=== PATIENT | male | born 1975 | race Caucasian/White ===

== ENCOUNTER 2023-07-13 15:18 | Emergency (ER) | payer SELFPAY ==
[2023-07-13 15:24] VITALS: BP 126/81; PULSE 82; RESP 18; TEMP 36.9; O2SAT 99; BMI 31.2
--- NOTE | 2023-07-13 15:34 | ED_ITS ---
HPI - Nausea/Vomiting/Diarrhea General Chief complaint: Abdominal Pain Stated complaint: Abdominal Pain, Nausea/Vomiting Time Seen by Provider: 07/13/23 15:20 Source: patient Mode of arrival: Wheelchair Limitations: no limitations History of Present Illness HPI Narrative: 47-year-old male presents for nausea and vomiting and abdominal pain. He developed some pain about 3:00 AM, about twelve hours ago. He started vomiting about six hours ago. No hematemesis and no diarrhea. His has diarrhea. His symptoms are continuous. Related Data Previous Rx's Medication Instructions Recorded ondansetron 4 mg disintegrating 4 mg PO Q6H PRN nausea and 07/13/23 tablet vomiting #20 tabs Allergies Allergy/AdvReac Type Severity Reaction Status Date / Time No Known Drug Allergies Allergy Verified 07/13/23 15:24 Review of Systems ROS Narrative A ten point review of systems is negative except as noted above. PFSH PFSH Social History Smoking status: Never smoker Exam Narrative Exam Narrative: Nurses note and vital signs reviewed and patient is not hypoxic. General: The patient appears well and in no apparent distress. Patient is resting comfortably on cart. Skin: Warm, dry, no pallor noted. There is no rash noted. Head: Normocephalic, atraumatic Eye: Normal conjunctiva, no drainage Ears, Nose, Mouth, and Throat: oral mucosa is moist. Nares patent. Cardiovascular: Regular Rate and Rhythm Respiratory: Patient is in no distress, no accessory muscle use, lungs are clear to auscultation, no wheezing, rales or rhonchi Back: non-tender, no CVA tenderness bilaterally to percussion. GI: obese, soft, mild mid abdominal tenderness Musculoskeletal: The patient has no evidence of calf tenderness, no pitting edema, symmetrical pulses noted bilaterally Neurological: A&O, normal speech Psychiatric: Cooperative Constitutional Vital Signs, click to edit/add: Last Vital Signs Temp 98.5 F 07/13/23 15:24 Pulse 82 07/13/23 15:24 Resp 18 07/13/23 15:24 BP 126/81 07/13/23 15:24 Pulse Ox 99 07/13/23 15:24 O2 Del Method Room Air 07/13/23 15:24 Course Vital Signs Vital signs: Vital Signs Temperature 98.5 F 07/13/23 15:24 Pulse Rate 82 07/13/23 15:24 Respiratory Rate 18 07/13/23 15:24 Blood Pressure 126/81 07/13/23 15:24 Pulse Oximetry 99 07/13/23 15:24 Oxygen Delivery Method Room Air 07/13/23 15:24 Temperature 98.5 F 07/13/23 15:24 Pulse Rate 82 07/13/23 15:24 Respiratory Rate 18 07/13/23 15:24 Blood Pressure 126/81 07/13/23 15:24 Pulse Oximetry 99 07/13/23 15:24 Oxygen Delivery Method Room Air 07/13/23 15:24 MDM - Nausea/Vomiting/Diarrhea MDM Narrative Medical decision making narrative: blood work is nonspecific. WBC is normal. He was given IV fluids and Zofran and is tolerating by mouth liquids without difficulty now and is able to be discharged home. Treatment diagnosis and follow-up were discussed with the patient. I've no clinical suspicion of acute appendicitis. Differential Diagnosis Differential diagnosis: Likely food poisoning, gastroenteritis and dehydration Lab Data Attestation: I reviewed the patient's lab results. Labs: Lab Results 07/13/23 Range/Units 15:35 WBC 10.0 (4.0-11.0) 10^3/uL RBC 5.66 (4.70-6.10) 10^6/uL Hgb 16.6 (14.0-18.0) g/dL Hct 47.7 (42.0-54.0) % MCV 84.3 (80.0-94.0) fL MCH 29.3 (25.9-34.0) pg MCHC 34.8 (29.9-35.2) g/dL RDW 12.1 (11.0-15.0) % Plt Count 210 (150-450) 10^3/uL MPV 11.6 (9.5-13.5) fL Neut % (Auto) 88.1 H (43.0-75.0) % Lymph % (Auto) 6.0 L (20.5-60.0) % [place] % (Auto) 4.5 (1.7-12.0) % Eos % (Auto) 0.9 (0.9-7.0) % Baso % (Auto) 0.2 (0.2-2.0) % Neut # (Auto) 8.8 H (1.4-6.5) 10^3/uL Lymph # (Auto) 0.6 L (1.2-3.8) 10^3/uL [place] # (Auto) 0.5 (0.3-0.8) 10^3/uL Eos # (Auto) 0.1 (0.0-0.7) 10^3/uL Baso # (Auto) 0.0 (0.0-0.1) 10^3/uL Abs Immat Gran (auto) 0.03 (0.00-0.03) 10^3/uL Imm/Tot Granulo (auto) 0.3 (0.0-0.5) % Sodium 137 (136-145) mmol/L Potassium 3.8 (3.5-5.1) mmol/L Chloride 98 (98-107) mmol/L Carbon Dioxide 28.8 (21.0-32.0) mmol/L Anion Gap 14.0 BUN 18.0 (7.0-18.0) mg/dL Creatinine 1.08 (0.70-1.30) mg/dL Est GFR ( Amer) >60 (>=60) Est GFR (Non-Af Amer) >60 (>=60) BUN/Creatinine Ratio 16.7 Glucose 314 H (74-106) mg/dL Calcium 8.9 (8.5-10.1) mg/dL Discharge Plan Discharge Chief Complaint: Abdominal Pain Clinical Impression: Nausea and vomiting Patient Disposition: Home, Self-Care Time of Disposition Decision: 16:58 Condition: Good Mode of Transportation: Private Vehicle Prescriptions / Home Meds: New ondansetron 4 mg tablet,disintegrating 4 mg PO Q6H PRN (Reason: nausea and vomiting) Qty: 20 0RF Instructions: Acute Nausea and Vomiting (ED) Stand Alone Forms: Portal Instructions Referrals: Physician,Non-Staff, MD [Primary Care Provider] - 1 week
[2023-07-13 15:49] LABS: Basophils Percent Auto 0.2 % (0.2-2.0); Eosinophils Absolute Auto 0.1 10^3/uL (0.0-0.7); Eosinophils Percent Auto 0.9 % (0.9-7.0); Hematocrit 47.7 % (42.0-54.0); Hemoglobin 16.6 g/dL (14.0-18.0); Immature Granulocytes Abs Auto 0.03 10^3/uL (0.00-0.03); Immature Granulocytes Pct Auto 0.3 % (0.0-0.5); Lymphocytes Absolute Auto 0.6 10^3/uL (1.2-3.8); Mean Corpuscular HGB Conc 34.8 g/dL (29.9-35.2); Mean Corpuscular Hemoglobin 29.3 pg (25.9-34.0); Mean Corpuscular Volume 84.3 fL (80.0-94.0); Mean Platelet Volume 11.6 fL (9.5-13.5); Monocytes Absolute Auto 0.5 10^3/uL (0.3-0.8); Monocytes Percent Auto 4.5 % (1.7-12.0); Neutrophils Absolute Auto 8.8 10^3/uL (1.4-6.5); Neutrophils Percent Auto 88.1 % (43.0-75.0); Platelet Count 210 10^3/uL (150-450); Red Blood Count 5.66 10^6/uL (4.70-6.10); Red Cell Distribution Width 12.1 % (11.0-15.0)
[2023-07-13] MEDS: ONDANSETRON PF 4 MG/2 ML VIAL IV (15:54)
[2023-07-13] MEDS: 0.9 % SODIUM CHLORIDE 1,000 ML 1000 ML IV (15:54)
[2023-07-13 16:03] LABS: BUN Creatinine Ratio 16.7; Calcium 8.9 mg/dL (8.5-10.1); Carbon Dioxide 28.8 mmol/L (21.0-32.0); Chloride 98 mmol/L (98-107); Estimated GFR (African America >60 (>=60); Estimated GFR (Non-African Ame >60 (>=60); Glucose 314 mg/dL (74-106); Potassium 3.8 mmol/L (3.5-5.1); Sodium 137 mmol/L (136-145)
== END 2023-07-13 17:29 | disposition home or self-care (01) ==
PROVIDERS: Emergency Provider Emergency Medicine
DX: R11.2 Nausea with vomiting, unspecified (principal)
CPT/HCPCS: 36415; 80048; 85025; 96361; 96374; 99284; J2405

== ENCOUNTER 2023-07-26 21:21 | Emergency (ER) | payer SELFPAY ==
[2023-07-26 21:25] VITALS: BP 149/78; PULSE 78; RESP 18; TEMP 36.9; O2SAT 97; BMI 32.1
--- OUTSIDE RECORDS SUMMARY | 2023-07-26 21:26 | XMS_ITS | CCD ---
Author Name Unknown Address [address] [place] [address] Organization [facility] Care Team Providers Care Data Specialist Name Role Phone SHOSHANA, DR STELLA Sears Admitting Unavailable SHOSHANA, DR STELLA Sears Consulting Unavailable SHOSHANA, DR STELLA Sears Attending Unavailable GRACIA ., DR ANA Khan Primary Care Unavailable SYBIL MERCER Consulting Unavailable GRACIA ., DR ANA Khan Consulting Unavailable GRACIA ., DR ANA Khan Attending Unavailable GRACIA ., DR ANA Khan Admitting Unavailable GRACIA ., DR ANA Khan Primary Care Unavailable MARKER ., DR LA Admitting Unavailable MARKER ., DR LA Consulting Unavailable MARKER ., DR LA Attending Unavailable GRACIA ., DR ANA Khan Primary Care Unavailable Ting Cox Attending Unavailable Allergies Allergy Classification Reported Allergen(s) Allergy Type Date of Onset Reaction(s) Facility (1 source) Latex Drug allergy (disorder) 02-22-2014 [facility] Problems Active Problems Problem Classification Problem Date Documented Da te Episodic/Chronic Diabetes mellitus without complication (4 sources) Type 2 diabetes mellitus without complications; Translations: [TYPE 2 DM WITHOUT COMPLICATIONS] Onset: 2021 Chronic Other endocrine disorders (1 source) Testicular hypofunction; Translations: [TESTICULAR HYPOFUNCTION] Onset: 12-26-2021 Chronic Unclassified (2 sources) COUGH, UNSPECIFIED; Translations: [COUGH, UNSPECIFIED] Onset: 05-13-2022 Viral infection (1 source) COVID-19; Translations: [COVID-19] Onset: 05-13-2022 Past or Other Problems Problem Classification Problem Date Documented Da te Episodic/Chronic Unclassified (1 source) COUGH, UNSPECIFIED; Translations: [COUGH, UNSPECIFIED] Onset: 05-10-2022 Results Test Name Value Interpretation Reference Range Facility Covid-19 PCR (CVDTB)on 04-22 SARS-CoV-2 (COVID-19) RNA GRAHAM+probe Ql (Unsp spec) Detected Critically abnormal NOT DETECTED [facility] Comment on above: Result Comment: This test is not yet approved or cleared by the [place] FDA. When there are no FDA-approved or cleared tests available, and other criteria are met, FDA can make tests available under an emergency access mechanism called an Emergency Use Authorization (EUA). The EUA for this test is supported by the [place] of Health and Human Service's declaration that circumstances exist to justify the emergency use of in vitro diagnostics for the detection and/or diagnosis of the virus that causes COVID-19. This EUA will remain in effect for the duration of the COVID-19 declaration justifying emergency of IVDs, unless it is terminated or revoked by the FDA (after which the test may no longer be used). Performed By: #### C VDTB #### [facility] [address] [place] [address] Dr. Lorraine Karimi INFLUENZA A AND B AGon 05-10 [facility] SEE BELOW Normal [facility] Comment on above: Result Comment: Nega tive for Flu A protein angiten. Infection due to Flu A cannot be ruled out. Flu A angiten in the sample may be below the detection limit of the test. Performed By: #### I NFLUAB #### [facility] [address] [place] [address] Dr. [facility] SEE BEL[facility] Normal [facility] Comment on above: Result Comment: Nega tive for Flu B protein antigen. Infection due to Flu B cannot be ruled out. Flu B antigen in the sample may be below the detection limit of the test. Performed By: #### I NFLUAB #### [facility] [address] [place] [address] Dr. Lorraine Karimi INFLUENZA A AG Negative Normal NEGATIVE SEE COMMENT [facility] Comment on above: Performed By: #### I NFLUAB #### [facility] [address] [place] [address] Dr. Lorraine Karimi INFLUENZA B AG Negative Normal NEGATIVE SEE COMMENT [facility] Comment on above: Performed By: #### I NFLUAB #### [facility] [address] [address] [address] Lorraine Karimi INTERNAL CONTROLS Within Normal Limits Normal Wi thin Normal Limits [facility] Comment on above: Performed By: #### I NFLUAB #### [facility] [address] [address] [address] Lorraine Karimi XR CHEST 1 Von 05-10-2022 XR CHEST 1 V EXAMINATION: XR CHEST 1 V HISTORY: Cough COMPARISON: Chest x-rays 06/28/2021 TECHNIQUE: Portable chest FINDINGS: The lung parenchyma is free of consolidation or infiltrate. No pneumothorax or pleural effusion. The cardiac, mediastinal and hilar contours are normal. The visualized osseous structures exhibit no gross abnormality. IMPRESSION: No acute cardiopulmonary abnormality. Electronically authenticated by: SYBIL MERCER Date: 2022-05-10 21:17 Normal [facility] TESTOSTERONE, TOTALon 2021 Testosterone [Mass/Vol] 122 ng/dL Critically low 264-916 [facility] Comment on above: Result Comment: Adul t male reference interval is based on a population of healthy nonobese males (BMI <30) between 19 and 39 years old. Brandan et.al. JCEM 2017,102;6661-4786. PMID: [id number]. Performed By: #### T ESTTOT #### [facility] [address] [place] [address] Dr. Lorraine Karimi GLYCOHEMOGLOBIN A1Con 2021 ADA RECOMMENDATION SEE BELOW Normal [facility] Comment on above: Result Comment: ADA RECOMMENDED LIMIT 4.0 - 6.0 ADA THERAPEUTIC TARGET < 7.0 ACTION SUGGESTED > 7.0 Performed By: #### A 1C #### [facility] [address] [place] [address] Dr. Lorarine Karimi Glucose [Mass/Vol] 163 mg/dL Normal [facility] Comment on above: Performed By: #### A 1C #### [facility] [address] [address] [address] Lorraine Karimi HbA1c (Bld) [Mass fraction] 7.3 % Critically high 4.5-6.2 [facility] Comment on above: Performed By: #### A 1C #### [facility] [address] [place], [place] [address] Dr. Lorraine Karimi Encounters Encounter Date Encounter Type Care Provider Facility Start: 04-06-2023 [facility] Start: 03-31-2023 [facility]ali [facility] Start: 11-05-2022 End: 11-06-[address] BESSIE COCHRAN . Facility: Start: 05-10-2022 End: 05-10-[address] STELLA ANNA Facility:[facility] Start: 2021 End: 12-20-[address] ANA GRACIA . Facility: Payers Date Payer Category Payer Unknown [id number] [id number] [id number] 1975 Unknown [id number] [id number] 1975 Unknown [id number] [id number] 1974 Unknown [id number] 1960 Self-pay [id number] 1960 Unknown [id number] Self-pay Summary Purpose Family History No Family History Records FoundNo Family History Records Found Advance Directives No Advanced Directives Records FoundNo Advanced Directives Records Found Additional Source Comments (unrecognized sect ion and content) No Status Records FoundNo Status Records Found INFORMATION SOURCE (unrecogn ized section and content) DATE CREATED AUTHOR 11/06/2022 [facility] DATE CREATED AUTHOR AUTHOR'S ORGANIZ ATION 04/02/2023 [facility] FOR RECORDS PERTAINING TO PATIENTS WHO ARE OR HAVE BEEN ENROLLED IN A CHEMICAL DEPENDENCY/SUBSTANCEABUSE PROGRAM, SOME INFORMATION MAY BE OMITTED. This clinical summary was aggregated from multiple sources. Caution should be exercised in using it in the provision of clinical care. This summary normalizes information from multiple sources, and as a consequence, information in this document may materially change the coding, format and clinical context of patient data. In addition, data may be omitted in some cases. CLINICAL DECISIONS SHOULD BE BASED ON THE PRIMARY CLINICAL RECORDS. [facility] provides no warranty or guarantee of the accuracy or completeness of information in this document.
[2023-07-26 21:33] LABS: Glucometer 409 mg/dL (74-106)
--- NOTE | 2023-07-26 21:38 | XR_ITS ---
The [address] [address] Patient Name: MICHAEL ROBLERO MRN: [id number] date: 1975 Sex: M Assigned Patient Location: ER Current Patient Location: ER Accession/Order Number: [id number] Exam Date: 07/26/2023 21:50 Report Date: 07/26/2023 22:16 At the request of: DOLLY BARBOSA Procedure: XR chest 1V EXAMINATION: XR chest 1V, , 07/26/2023 9:50 PM EST INDICATION: cough HISTORY: Ordering Provider Reason for Exam: cough Technologist Note: Additional: COMPARISON: 05/10/2022 TECHNIQUE: Chest x-ray: One view. FINDINGS: No pneumothorax, pleural effusion or focal airspace consolidation. Heart is normal in size. Bony thorax is unremarkable. XR/XR chest 1V IMPRESSION: No acute cardiopulmonary process. Electronically authenticated by: JOELLE MERCADO Date: 07/26/2023 22:16
--- NOTE | 2023-07-26 21:43 | ED.GENADUL1 ---
HPI - General Adult General Chief complaint: Upper Respiratory Infection Stated complaint: URTI, Hyperglycemia Time Seen by Provider: 07/26/23 21:28 Source: patient Mode of arrival: walk-in Limitations: no limitations History of Present Illness HPI narrative: Flu-like symptoms began 5 days ago - cough, fatigue, muscle aches. Cough worsened so his started giving him liquid albuterol left over from a prior prescription - he said he cannot use MDI - it makes me gag . No fever or chills. He is a non-insulin dependent diabetic who ran out of insurance about a year ago and has not been able to refill any of his meds. Sugars have been between 200 and 300 for the last week. He stil has some glipizide left but will soon run out. His PCP retired and he has no new PCP. Related Data Home Medications Medication Instructions Recorded Confirmed glipizide 10 mg tablet 10 mg PO BID 07/26/23 07/26/23 Previous Rx's Medication Instructions Recorded metformin 500 mg tablet 500 mg PO BID #60 tabs 07/26/23 Allergies Allergy/AdvReac Type Severity Reaction Status Date / Time No Known Drug Allergies Allergy Verified 07/26/23 21:33 [facility] Social History Smoking status: Never smoker Exam Narrative Exam Narrative: Nurses notes and vital signs reviewed and patient is not hypoxic. afebrile General: Well-appearing and in no apparent distress. Skin: Warm, dry, no pallor noted. No rash. Head: Normocephalic, atraumatic. Neck: Supple, non-tender. No cervical lymphadenopathy. No meningismus Eye: Pupils are equal, round and EOMI. No scleral icterus. Ears, Nose, Mouth, and Throat: TM are clear, mild posterior oropharynx erythema and nasal mucosal hypertrophy, uvula is mid-line Oral mucosa is moist Cardiovascular: Regular Rate and Rhythm without murmur, gallop or rub. Respiratory: No accessory muscle use or respiratory distress. Lungs are clear to auscultation, no wheezing, rales or rhonchi Musculoskeletal: normal ROM, no calf or popliteal tenderness, no lower extremity edema/swelling GI: Abdomen is soft, non-distended. Normal bowel sounds. No tenderness to palpation. No rebound, guarding, or rigidity noted. Neurological: A&O x4. No cranial nerve dysfunction observed. No truncal ataxia. Moves all extremities. Sensation intact. Psychiatric: Cooperative and interactive. Normal mood and affect. Constitutional Vital Signs, click to edit/add: Last Vital Signs Temp 98.4 F 07/26/23 21:25 Pulse 78 07/26/23 21:25 Resp 18 07/26/23 21:25 BP 149/78 H 07/26/23 21:25 Pulse Ox 97 07/26/23 21:25 O2 Del Method Room Air 07/26/23 21:25 Course Vital Signs Vital signs: Vital Signs Temperature 98.4 F 07/26/23 21:25 Pulse Rate 78 07/26/23 21:25 Respiratory Rate 18 07/26/23 21:25 Blood Pressure 149/78 H 07/26/23 21:25 Pulse Oximetry 97 07/26/23 21:25 Oxygen Delivery Method Room Air 07/26/23 21:25 Temperature 98.4 F 07/26/23 21:25 Pulse Rate 78 07/26/23 21:25 Respiratory Rate 18 07/26/23 21:25 Blood Pressure 149/78 H 07/26/23 21:25 Pulse Oximetry 97 07/26/23 21:25 Oxygen Delivery Method Room Air 07/26/23 21:25 Medical Decision Making MDM Narrative Medical decision making narrative: Chest x-ray obtained. Respiratory panel also obtained and sent for testing. Bedside glucose is over 400. The patient was given 5 units of subcutaneous regular insulin. He tested positive for Influenza B. CXR negative. He was informed of results and discharged home. I prescribed metformin for him to take to control his glucose - he was given referral info for [facility] for follow up/new physician coverage. Patient advised to rest, stay at home, practice social distancing, take Motrin and Tylenol for pain and fever if not allergic, stay well hydrated with Gatorade or similar drinks if vomiting or eat as tolerated if not and take any meds as prescribed. Reviewed reasons to return including rapid increase in respiratory rate, shortness of breath, confusion, inability to keep down sips of swallowed liquids for more than 24 hours. Asked patient to encourage any ill contacts to stay home and practice similar advice. Lab Data Lab results reviewed: Yes I reviewed the patient's lab results Labs: Lab Results 07/26/23 07/26/23 Range/Units 21:32 21:48 Adenovirus (PCR) Not detected (NOT DETECTE) C. pneumoniae DNA (PCR) Not detected (NOT DETECTE) Coronavirus Type OC43 Not detected (NOT DETECTE) Coronavirus Type HKU1 Not detected (NOT DETECTE) Coronavirus Type 229E Not detected (NOT DETECTE) Coronavirus Type NL63 Not detected (NOT DETECTE) Human Metapneumovir PCR Not detected (NOT DETECTE) M. pneumoniae (PCR) Not detected (NOT DETECTE) Parainfluenza PCR Not detected (NOT DETECTE) Parainfluenza 2 (PCR) Not detected (NOT DETECTE) Parainfluenza 3 (PCR) Not detected (NOT DETECTE) Parainfluenza 4 (PCR) Not detected (NOT DETECTE) RSV (RT-PCR) Not detected (NOT DETECTE) Entero/Rhino (PCR) Not detected (NOT DETECTE) SARS-CoV-2 (PCR) Not detected (NOT DETECTE) Bordetella pertussis (PCR) Not detected (NOT DETECTE) B parapertussis DNA PCR Not detected (NOT DETECTE) Influenza Type A (PCR) Not detected (NOT DETECTE) Influenza Type B (PCR) Detected A (NOT DETECTE) POC Glucose 409 H (74-106) mg/dL Imaging Data Chest x-ray: Radiologist's impression: ITS Impressions Chest X-Ray 07/26/23 21:38 IMPRESSION: No acute cardiopulmonary process. Electronically authenticated by: JOELLE MERCADO Date: 07/26/2023 22:16 Discharge Plan Discharge Chief Complaint: Upper Respiratory Infection Clinical Impression: Influenza, Acute viral syndrome, Acute hyperglycemia Patient Disposition: Home, Self-Care Time of Disposition Decision: 23:09 Prescriptions / Home Meds: New metformin 500 mg tablet 500 mg PO BID Qty: 60 1RF No Action glipizide 10 mg tablet 10 mg PO BID Instructions: Viral Syndrome (ED), Diabetic Hyperglycemia (ED), Influenza (ED) Stand Alone Forms: Portal Instructions Referrals: Physician,Non-Staff, MD [Primary Care Provider] - 1 week
--- NOTE | 2023-07-26 21:50 | PC.NURSE ---
Pt states that a cough and congestion started on thursday, started Zpack thursday. states he has also been taking a liquid albuterol medication that is making him feel shaky. States he checked his blood sugar this evening at it was 500, so pt wanted to come in and get checked out.
[2023-07-26 22:00] LABS: Adenovirus NOT DETECTED (NOT DETECTE); Bordetella parapertussis NOT DETECTED (NOT DETECTE); Coronavirus 229E NOT DETECTED (NOT DETECTE); Coronavirus HKU1 NOT DETECTED (NOT DETECTE); Coronavirus NL63 NOT DETECTED (NOT DETECTE); Coronavirus OC43 NOT DETECTED (NOT DETECTE); Human Metapneumovirus NOT DETECTED (NOT DETECTE); Human Rhinovirus/Enterovirus NOT DETECTED (NOT DETECTE); Influenza A NOT DETECTED (NOT DETECTE); Mycoplasma pneumoniae NOT DETECTED (NOT DETECTE); Parainfluenza Virus 1 NOT DETECTED (NOT DETECTE); Parainfluenza Virus 2 NOT DETECTED (NOT DETECTE); Parainfluenza Virus 3 NOT DETECTED (NOT DETECTE); Parainfluenza Virus 4 NOT DETECTED (NOT DETECTE); Respiratory Syncytial Virus NOT DETECTED (NOT DETECTE); SARS-CoV-2 NOT DETECTED (NOT DETECTE)
[2023-07-26] MEDS: INSULIN REGULAR 300 UNITS/3 ML 5 UNIT SUBQ (22:00)
[2023-07-26 23:04] LABS: Influenza B DETECTED (NOT DETECTE)
[2023-07-26 23:09] LABS: Glucometer 388 mg/dL (74-106)
--- NOTE | 2023-07-26 23:21 | PC.NURSE ---
Discussed discharge paperwork with pt and . All questions answered. Script sent to pharmacy. Work note provided. List of doctors accepting new patients given. Pt verbalized understanding of instructions. Pt ambulated off unit in stable condition.
== END 2023-07-26 23:23 | disposition home or self-care (01) ==
PROVIDERS: Emergency Provider Emergency Medicine
DX: J10.1 Influenza due to other identified influenza virus with other respiratory manifestations (principal); E11.65 Type 2 diabetes mellitus with hyperglycemia; Z20.822 Contact with and (suspected) exposure to COVID-19; Z79.899 Other long term (current) drug therapy
CPT/HCPCS: 0202U; 36415; 71045; 99284

== ENCOUNTER 2024-07-30 09:06 | Outpatient (OUT) | payer OTHER, SELFPAY ==
--- OUTSIDE RECORDS SUMMARY | 2024-07-30 09:12 | XMS_ITS | CCD ---
Author Organization [facility] Care Team Providers Care Quality Rep Name Role Phone DR STELLA ANNA Admitting Unavailable SHOSHANA, DR STELLA Sears Consulting Unavailable SHOSHANA, DR STELLA Sears Attending Unavailable LAYNE ., DR ASHA Khan Primary Care Unavailable SYBIL MERCER Consulting Unavailable LAYNE ., DR ASHA Khan Consulting Unavailable LAYNE ., DR ASHA Khan Attending Unavailable LAYNE ., DR ASHA Khan Admitting Unavailable LAYNE ., DR ASHA Khan Primary Care Unavailable MARKER ., DR LA Admitting Unavailable MARKER ., DR LA Consulting Unavailable MARKER ., DR LA Attending Unavailable LAYNE ., DR ASHA Khan Primary Care Unavailable Ting Cox Attending Unavailable Mira Mercado Unavailable [phone] Allergies Allergy Classification Reported Allergen(s) Allergy Type Date of Onset Reaction(s) Facility (1 source) Latex Drug allergy (disorder) 02-22-2014 [facility] Repository (1 source) Latex Drug allergy Unknown [facility] Other Medications Current Medications Medication Drug Class(es) Dates Sig (Normalized) Sig (Original) Azelastine 137 mcg (0.1 %) spray,non-aerosol (1 source) Start: 07-21-2024 take 1 spray(s) nasal route twice daily Azelastine 137 mcg (0.1 %) spray,non-aerosol Active 1 SPRAY INTRANASAL Twice daily July 21, 2024 12:00am administer into each nostril famotidine 20 mg oral tablet (3 sources) Histamine-2 Receptor Antagonist Start: 08-14-2018 take 1 tablet by mouth three times daily Famotidine 20 mg tablet Active 20 MG PO Three times daily August 14, 2018 12:00am take 1 tablet by sloan th every twelve hours Famotidine 20 MG 1 tablet as needed Oral ly Twice a day Active ibuprofen 800 mg oral tablet (2 sources) Nonsteroidal Anti-inflammatory Drug Start: 08-14-2018 take 1 tablet by mouth three times daily as needed for pain Ibuprofen 800 mg tablet Active 800 MG PO Three times daily as needed for fever or pain August 14, 2018 12:01pm sulfamethoxazole 800 mg / trimethoprim 160 mg oral tablet (1 source) Dihydrofolate Reductase Inhibitor Antibacterial, Sulfonamide Antimicrobial Start: 07-21-2024 take 1 tablet by mouth twice daily Sulfamethoxazo le-Trimethopri m (Bactrim Ds) 800-160 mg tablet Active 1 TAB PO Twice daily 10 04July 21, 2024 12:00am Completed/Discontinued Medications Medication Drug Class(es) Dates Sig (Normalized) Sig (Original) acetaminophen 325 mg / HYDROcodone bitartrate 5 mg oral tablet (2 sources) Opioid Agonist Start: 08-14-2018 End: 06-27-2024 take 1 tablet by mouth every six hours as needed for pain Hydrocodone-Acetam inophen ([place]) 5-325 mg tablet Discontinued 1 TAB PO Q6H as needed for pain 10 August 14, 2018 June 27, 2024 4:06pm dapagliflozin 5 mg oral tablet (8 sources) Sodium-Glucose Cotransporter 2 Inhibitor Start: 11-03-2023 End: 06-27-2024 take 1 tablet by mouth once daily Dapagliflozin Propanediol (Farxiga) 5 mg tablet Discontinued 5 MG PO Daily November 03, 2023 7:19am June 27, 2024 4:16pm Start: 07-28-2023 take 1 tablet by sloan th every twenty-four hours Farxiga 5 MG 1 tablet Orally Once a day for 30 days Jul, Active Farxiga No longe r taking due to acosta Not-Taking/PRN glipiZIDE 10 mg oral tablet (5 sources) Sulfonylurea Start: 12-07-2023 End: 06-27-2024 take 2 tablets by mouth twice daily Glipizide 10 mg tablet Discontinued 20 MG PO Twice daily 360 90 December 07, 2023 10:06am June 27, 2024 3:55pm take 1 tablet by mouth twice gena ly glipiZIDE 10 MG 1 tablet orally twice daily for 90 days Active Ketorolac (2 sources) Nonsteroidal Anti-inflammatory Drug, Cyclooxygenase Inhibitor Start: 03-17-2016 Toradol p er 15 mg Feb, 60 mg Start: 03-12-2016 Toradol per 15 mg Feb, 60 mg metFORMIN hydrochloride 500 mg oral tablet (3 sources) Biguanide Start: 08-14-2018 End: 06-27-2024 take 1 tablet by mouth three times daily Metformin 500 mg tablet Discontinued 500 MG PO Three times daily August 14, 2018 12:00am June 27, 2024 4:16pm take 1 tablet by mouth twice gena ly metFORMIN HCl 500 MG 1 tablet with a meal Orally twice daily Active methylPREDNISolone 4 mg oral tablet (2 sources) Corticosteroid Start: 06-27-2024 End: 07-21-2024 take 1 tablet by mouth once Methylprednisolone (Medrol (Joe)) 4 mg tablets,dose pack Discontinued 0 PO per package directions June 27, 2024 12:00am July 21, 2024 3:53pm PO PER PKG DIR penicillin v potassium 500 mg oral tablet (2 sources) Start: 08-14-2018 End: 08-24-2018 Penicillin V Potassium 500 mg tablet Discontinued 1000 MG PO Twice daily 40 10 August 14, 2018 12:00am August 23, 2018 12:00am August 24, 2018 12:02am Triamcinolone (1 source) Corticosteroid Start: 09-03-2016 Kenalog -40 mg 15 Aug, 2016 Problems Active Problems Problem Classification Problem Date Documented Date Episodic/Chronic Diabetes mellitus without complication (10 sources) Type 2 diabetes mellitus without complications; Translations: [Type 2 diabetes mellitus without complication] Onset: 2021 Chronic Esophageal disorders (6 sources) Gastroesophageal reflux disease without esophagitis; Translations: [Gastro-esophageal reflux disease without esophagitis] Chronic Joint disorders and dislocations; trauma-related (1 source) Articular cartilage disorder of shoulder region; Translations: [Other articular cartilage disorders, left shoulder] Chronic Other endocrine disorders (1 source) Testicular hypofunction; Translations: [TESTICULAR HYPOFUNCTION] Onset: 12-26-2021 Chronic Other nutritional; endocrine; and metabolic disorders (1 source) Body mass index 30+ - obesity; Translations: [Body mass index (BMI) 31.0-31.9, adult] Chronic Other nutritional; endocrine; and metabolic disorders (1 source) Body mass index (BMI) 31.0-31.9, adult Chronic Other screening for suspected conditions (not mental disorders or infectious disease) (8 sources) Patient encounter status; Translations: [Encounter for screening for malignant neoplasm of prostate] 06-27-2024 Episodic Other upper respiratory disease (2 sources) Rhinitis medicamentosa; Translations: [Chronic rhinitis] 06-27-2024 Chronic Other upper respiratory disease (2 sources) Chronic rhinitis; Translations: [Chronic rhinitis] 06-27-2024 Chronic Other upper respiratory disease (1 source) Nasal congestion; Translations: [Nasal congestion] 07-21-2024 Episodic Other upper respiratory disease (1 source) Nasal congestion; Translations: [Other disease of nasal cavity and sinuses] 07-21-2024 Episodic Skin and subcutaneous tissue infections (1 source) Abscess; Translations: [Cutaneous abscess, unspecified] 07-21-2024 Episodic Sprains and strains (2 sources) Sprain of spinal ligament; Translations: [Sprain of ligaments of cervical spine, initial encounter] Episodic Unclassified (2 sources) COUGH, UNSPECIFIED; Translations: [COUGH, UNSPECIFIED] Onset: 05-13-2022 Viral infection (1 source) COVID-19; Translations: [COVID-19] Onset: 05-13-2022 Past or Other Problems Problem Classification Problem Date Documented Da te Episodic/Chronic Unclassified (1 source) COUGH, UNSPECIFIED; Translations: [COUGH, UNSPECIFIED] Onset: 05-10-2022 Results Test Name Value Interpretation Reference Range Facility Covid-19 PCR ([facility])on 04-22 SARS-CoV-2 (COVID-19) RNA GRAHAM+probe Ql (Unsp spec) Detected Critically abnormal NOT DETECTED [facility] Comment on above: Result Comment: This test is not yet approved or cleared by the [place] FDA. When there are no FDA-approved or cleared tests available, and other criteria are met, FDA can make tests available under an emergency access mechanism called an Emergency Use Authorization (EUA). The EUA for this test is supported by the Turbine Mechanic of Health and Human Service's declaration that [...] longer be used). Performed By: #### [facility] #### [facility] [address] [place] [address] Dr. Lorraine Karimi INFLUENZA A AND B AGon 05-10 [facility] SEE BELOW Normal [facility] Comment on above: Result Comment: Nega tive for Flu A protein angiten. Infection due to Flu A cannot be ruled out. Flu A angiten in the sample may be below the detection limit of the test. Performed By: #### I NFLUAB #### [facility] [address] [place] [address] Dr. Lorraine Karimi [facility] SEE BELOW Normal [facility] Comment on above: Result Comment: Nega tive for Flu B protein antigen. Infection due to Flu B cannot be ruled out. Flu B antigen in the sample may be below the detection limit of the test. Performed By: #### I NFLUAB #### [facility] [address] [place] [address] Dr. Lorraine Karimi INFLUENZA A AG Negative Normal NEGATIVE SEE COMMENT [facility] Comment on above: Performed By: #### I NFLUAB #### [facility] [address] [place] [address] Dr. Lorraine Karimi INFLUENZA B AG Negative Normal NEGATIVE SEE COMMENT [facility] Comment on above: Performed By: #### I NFLUAB #### [facility] [address] [place] [address] Dr. Lorraine Karimi INTERNAL CONTROLS Within Normal Limits Normal Wi thin Normal Limits [facility] Comment on above: Performed By: #### I NFLUAB #### [facility] [address] [place] [address] Dr. Lorraine Karimi XR CHEST 1 Von [...] SYBIL MERCER Date: 2022-05-10 21:17 Normal [facility] TESTOSTERONE, TOTALon 2021 Testosterone [Mass/Vol] 122 ng/dL Critically low 264-916 [facility] Comment on above: Result Comment: Adul t male reference interval is based on a population of healthy nonobese males (BMI <30) between 19 and 39 years old. khris Gipson.calin. JCEM 2017,102;[id number]. PMID: [id number]. Performed By: #### T ESTTOT #### [facility] [address] [address] [address] Lorraine Karimi GLYCOHEMOGLOBIN A1Con 2021 ADA RECOMMENDATION SEE BELOW Normal [facility] Comment on above: Result Comment: ADA RECOMMENDED LIMIT 4.0 - 6.0 ADA THERAPEUTIC TARGET < 7.0 ACTION SUGGESTED > 7.0 Performed By: #### A 1C #### [facility] [address] [address] [address] Lorraine Karimi Glucose [Mass/Vol] 163 mg/dL Normal [facility] Comment on above: Performed By: #### A 1C #### [facility] [address] [address] [address] Lorraine Karimi HbA1c (Bld) [Mass fraction] 7.3 % Critically high 4.5-6.2 [facility] Comment on above: Performed By: #### A 1C #### [facility] [address] [address] [address] Lorraine Karimi Vital Signs Date Time Vital Sign Value Performing Clinician Facility 07-21-2024 15:33-0500 Body height 182.88 cm [facility] 07-21-2024 15:33-0500 Body mass index (BMI) [Ratio] 29.7 kg/m2 [facility] 07-21-2024 15:33-0500 Body temperature 98.5 [degF] [facility] 07-21-2024 15:33-0500 Body weight 99.33 kg [facility] 07-21-2024 15:33-0500 Diastolic blood pressure 80 mm[Hg] [facility] 07-21-2024 15:33-0500 Heart rate 63 /min [facility] 07-21-2024 15:33-0500 SaO2% (BldA) [Mass fraction] 97 % [facility] 07-21-2024 15:33-0500 Systolic blood pressure 122 mm[Hg] [facility] 06-27-2024 15:52-0500 Body height 182.88 cm [facility] 06-27-2024 15:52-0500 Body mass index (BMI) [Ratio] 31.4 kg/m2 [facility] 06-27-2024 15:52-0500 Body temperature 97.3 [degF] [facility] 06-27-2024 15:52-0500 Body weight 105.23 kg [facility] 06-27-2024 15:52-0500 Diastolic blood pressure 72 mm[Hg] [facility] 06-27-2024 15:52-0500 Heart rate 61 /min [facility] 06-27-2024 15:52-0500 SaO2% (BldA) [Mass fraction] 97 % [facility] 06-27-2024 15:52-0500 Systolic blood pressure 124 mm[Hg] [facility] 07-28-2023 15:30-0500 Body height 182.88 cm Mira Mercado Other [employer] [facility] [employer] Other 07-28-2023 15:30-0500 Body mass index (BMI) [Ratio] 31.19 kg/m2 Mira Mercado Other [employer] [facility] [employer] Other 07-28-2023 15:30-0500 Body weight 104.33 kg Mira Mercado Other [facility] Other 07-28-2023 15:30-0500 Diastolic blood pressure 72 mm[Hg] Mira Mercado Other [employer] [facility] [employer] Other 07-28-2023 15:30-0500 SaO2% (BldA) [Mass fraction] 99 % Mira Mercado Other [employer] [facility] [employer] Other 07-28-2023 15:30-0500 Systolic blood pressure 112 mm[Hg] Mira Mercado Other [facility] Other Encounters Encounter Date Encounter Type Care Provider Facility Start: 07-21-2024 End: 07-21-2024 ambulatory [facility] Work Phone: Start: 07-21-2024 End: 07-21-2024 Patient encounter procedure [facility] Work Phone: Start: 06-27-2024 End: 06-27-2024 ambulatory [facility] Work Phone: Start: 06-27-2024 End: 06-27-2024 Patient encounter procedure [facility] Physician [facility] Work Phone: Start: 07-28-2023 End: 07-28-2023 ambulatory Mira Mercado Other [facility] [employer] Other Start: 07-28-2023 Office outpatient ne w 20 minutes Mira Mercado [facility] Start: 04-06-2023 ambulatory Ting Cox Facility: [facility] Start: 03-31-2023 ambulatory Ting Cox Facility:[facility] Start: 11-05-2022 End: 11-06-[address] BESSIE COCHRAN . Facility:[facility] Start: 05-10-2022 End: 05-10-[address] STELLA ANNA Facility:[facility] Start: 2021 End: 12-20-[address] ASHA LAYNE . Facility:[facility] Plan of Treatment Date Care Activity Detail Author Comprehensive metabo lic 2000 panel - Serum or Plasma [facility] enter [facility] Payers Date Payer Category Payer Unknown [id number] [id number] [id number] 1975 Unknown [id number] [id number] [id number] 1975 Unknown [id number] [id number] [id number] 1975 Unknown [id number] [id number] 1960 Self-pay [id number] 1960 Unknown [id number] Self-pay Unknown Kam BC/BS [id number] Social History Date Type Detail Facility Sex Assigned At [facility] Other Start: 08-14-2018 End: 07-19-2024 Tobacco smoking status NHIS Never smoked tobacco (finding) [facility] Start: 06-27-2024 End: 07-21-2024 Sex Male (finding) [facility] Start: 1975 Sex Assigned At Male F [facility] Evaluation note 06-27-2024 Note Date & Type Note Facility 06-27-2024 Evaluation note Diagnosis Onset Date Resolution Acid reflux acute June 27, 2024 3:41pm Diabetes mellitus acute June 27, 2024 3:41pm Rhinitis medicamentosa acute [facility]2024 3:41pm Screening for colon cancer acute June 27 3:41pm Screening for prostate cancer acute June 27 3:41pm Nasal congestion acute July 21, 2024 3:29pm [facility] Work Phone: Evaluation note 07-28-2023 Note Date & Type Note Facility 07-28-2023 Evaluation note Encounter Date Diagnosis Assessment Notes Jul, Type 2 diabetes mellitus without complication, without long-term current use of insulin (ICD-10 - E11.9) He has not had an A1c done in at least a year. He does not have insurance, provided with direct access labs at [facility]. Also will try to get Farxiga covered. He will take Farxiga and the Glipizide. If unable to afford will start back on the Metformin. Pt verbalizes understanding and agrees to plan of care. Patient is advised to work on healthy diet choices and appropriate servings, weight control, regular exercise as directed, reduced fat intake, and salt avoidance. Patient voiced understanding of this and agrees to this plan. Prior to your visit today we reviewed your chart and outlined the testing and treatment needed for your care. We discussed possible complications of diabetes including risk of heart disease, stroke, and kidney disease. Your goal is to keep uou HgA1C below 7 (preferably <6.5) and your blood pressure less than 130/85 (and preferably < 120/80) and mataining a healthy weight with a BMI less than 26. We are working together to acheive these goals with the following plan; healthier diet, understanding your medications, and your compliance. Barriers to these goals have been discussed. You have been given educational handouts. Jul, GERD without esophagitis (ICD-10 - K21.9) Reflux symptoms remain unchanged. Discussed the importance of meal content. They should avoid overeating and eating meals late in the evening. Take medication as directed and we will continue to monitor. Jul, BMI 31.0-31.9,adul t (ICD-10 - Z68.31) [facility] Other Evaluation note Note Date & Type Note Facility Evaluation note Diagnosis Onset Date Resolution Acid reflux acute June 27, 2024 3:41pm Diabetes mellitus acute June 27, 2024 3:41pm Rhinitis medicamentosa acute [facility] 2024 3:41pm Screening for colon cancer acute June 27 3:41pm Screening for prostate cancer acute June 27 3:41pm [facility] Work Phone: History general Narrative - Reported Note Date & Type Note Facility History general Narrative - Reported Type Medical History Acid reflux Medical History Diabetes Mellitus Surgical History EGD Surgical History Bronchoscopy Hospitalization History see above [facility] Other Summary Purpose Family History No Family History Records FoundNo Family History Records Found Advance Directives Advance Directive Response Recorded Date/ Time Advance Directives No July 12:21pm Advance Directive Response Recorded Date/ Time Advance Directives No July 19, 2024 4:28pm Chief Complaint and Reason for Visit Chief Complaint Admit Date discuss switching meds June 27, 2024 3:41pm Reason for Visit Admit Date Acid reflux June 27, 2024 3: 41pm Diabetes mellitus June 27, 2024 3: 41pm Rhinitis medicamentosa June 27, 2024 3:41pm Screening for colon cancer June 27, 2024 3:41pm Screening for prostate cancer June 3:41pm Chief Complaint Admit Date discuss switching meds June 27, 2024 3:41pm Cold/COVID- July 21, 2024 3 :29pm Reason for Visit Admit Date Acid reflux June 27, 2024 3: 41pm Diabetes mellitus June 27, 2024 3: 41pm Rhinitis medicamentosa June 27, 2024 3:41pm Screening for colon cancer June 27, 2024 3:41pm Screening for prostate cancer June 3:41pm Nasal congestion July 21, 2024 3 :29pm Additional Source Comments (unrecognized sect ion and content) No Status Records FoundNo Status Records Found INFORMATION SOURCE (unrecogn ized section and content) DATE CREATED AUTHOR 11/06/2022 [facility] DATE CREATED AUTHOR AUTHOR'S ORGANIZ ATION 04/02/2023 [facility] REASON FOR VISIT (unrecogniz ed section and content) establish Care Teams (unrecognized sec tion and content) Team Status: Active Member Role Status Dates Asha Layne MD Primary Care Provider Active Team Status: Inactive Member Role Status Dates Asha Layne MD Primary Care Provider Active S tart: June 27, 2024 End: June 27, 2024 HUONG Hardwick Attending Provider [place] Start: June 27, 2024 End: June 27, 2024 Team Status: Active Member Role Status Dates HUONG Hardwick Primary Care Provider Active Team Status: Inactive Member Role Status Dates HUONG Hardwick Primary Care Provider, Attending Provider Active Start: July 21, 2024 End: July 21, 2024 Goals (unrecognized section and content) Goals may be documented in a n alternate section FOR RECORDS PERTAINING TO PATIENTS WHO ARE [...] BE BASED ON THE PRIMARY CLINICAL RECORDS. [employer] [facility]. provides no warranty or guarantee of the accuracy or completeness of information in this document.
[2024-07-30 09:29] LABS: Basophils Absolute Auto 0.1 10^3/uL (0.0-0.1); Basophils Percent Auto 0.6 % (0.2-2.0); Eosinophils Absolute Auto 0.3 10^3/uL (0.0-0.7); Eosinophils Percent Auto 3.4 % (0.9-7.0); Hematocrit 45.6 % (42.0-54.0); Hemoglobin 15.8 g/dL (14.0-18.0); Immature Granulocytes Abs Auto 0.05 10^3/uL (0.00-0.03); Immature Granulocytes Pct Auto 0.6 % (0.0-0.5); Lymphocytes Absolute Auto 2.8 10^3/uL (1.2-3.8); Lymphocytes Percent Auto 35.6 % (20.5-60.0); Mean Corpuscular HGB Conc 34.6 g/dL (29.9-35.2); Mean Corpuscular Volume 83.8 fL (80.0-94.0); Mean Platelet Volume 10.5 fL (9.5-13.5); Monocytes Absolute Auto 0.5 10^3/uL (0.3-0.8); Monocytes Percent Auto 6.3 % (1.7-12.0); Neutrophils Absolute Auto 4.1 10^3/uL (1.4-6.5); Neutrophils Percent Auto 53.5 % (43.0-75.0); Platelet Count 260 10^3/uL (150-450); Red Blood Count 5.44 10^6/uL (4.70-6.10); Red Cell Distribution Width 12.2 % (11.0-15.0); White Blood Count 7.7 10^3/uL (4.0-11.0)
[2024-07-30 09:49] LABS: Alanine Aminotransferase 95 U/L (16-63); Albumin Globulin Ratio 1.4; Albumin Level 4.1 g/dL (3.4-5.0); Alkaline Phosphatase 97 U/L (46-116); Anion Gap 12.1; Aspartate Amino Transferase 34 U/L (15-37); BUN Creatinine Ratio 14.4; Bilirubin Total 0.7 mg/dL (0.2-1.0); Calcium 9.1 mg/dL (8.5-10.1); Carbon Dioxide 30.7 mmol/L (21.0-32.0); Chloride 100 mmol/L (98-107); Chol HDL Ratio 5.8; Cholesterol 226 mg/dL (<=200); Estimated GFR (African America >60 (>=60 mL/min/1.73m^2); Estimated GFR (Non-African Ame >60 (>=60 mL/min/1.73m^2); Glucose 353 mg/dL (74-106); HDL Cholesterol 39 mg/dL (40-60); Potassium 4.8 mmol/L (3.5-5.1); Sodium 138 mmol/L (136-145); Total Protein 7.1 g/dL (6.4-8.2); Triglycerides 373 mg/dL (<=150); VLDL CHOLESTEROL 74.6 mg/dL
[2024-07-30 10:09] LABS: Estimated Average Glucose 289 mg/dL; Glycohemoglobin A1C 11.7 % (4.5-6.2)
[2024-07-30 10:10] LABS: Creatinine Urine Random 56.79 mg/dL (20.00-300.00); Microalbumin Urine Random <1.3 mg/dL (<=30.0)
[2024-07-30 10:42] LABS: Prostate Specific Antigen Scrn 3.33 ng/mL (<=4.00)
== END 2024-07-30 09:07 | disposition home or self-care (01) ==
LOC: LAB 09:10
PROVIDERS: PCP Nurse Practitioner Family; Visit Provider Nurse Practitioner Family
DX: Z12.5 Encounter for screening for malignant neoplasm of prostate (principal); E11.9 Type 2 diabetes mellitus without complications
CPT/HCPCS: 36415; 80053; 80061; 82043; 82570; 83036; 85025; G0103

== ENCOUNTER 2024-12-29 17:15 | Outpatient (OUT) | payer OTHER, SELFPAY ==
--- NOTE | 2024-12-29 17:26 | XR_ITS ---
The [address] [address] Patient Name: MICHAEL ROBLERO MRN: [id number] date: 1975 Sex: M Assigned Patient Location: [facility] Current Patient Location: [facility] Accession/Order Number: [id number] Exam Date: 12/29/2024 22:11 Report Date: 12/29/2024 22:12 At the request of: AMERICA MONTALVO MD Procedure: XR cervical spine 2-3V XR cervical spine 2-3V 12/29/2024 5:46 PM SIGNS AND SYMPTOMS: ^M62.838 Trapezius muscle spasm PROTOCOLS: Frontal and lateral radiographs of the cervical spine COMPARISON: None FINDINGS: The bones are in anatomic alignment. There is preservation of the vertebral body heights. There is mild intervertebral disc height loss at C4-C5 and C5-C6. There is no fracture or destructive lesion. XR/XR cervical spine 2-3V IMPRESSION: Mild degenerative changes are noted at C4-C5 and C5-C6. No fracture or subluxation. Impression dictated by: Vimal Cha M.D. 12/29/2024 10:12 PM Dictation Location: [place] [address] Electronically authenticated by: [id number] Y Date: 12/29/2024 22:12
--- NOTE | 2024-12-29 17:26 | XR_ITS ---
The [place] [id number] Patient Name: MICHAEL ROBLERO MRN: [id number] date: 1975 Sex: M Assigned Patient Location: [facility] Current Patient Location: [facility] Accession/Order Number: [id number] Exam Date: 12/29/2024 22:07 Report Date: 12/29/2024 22:11 At the request of: AMERICA MONTALVO MD Procedure: XR shoulder LT min 2V XR shoulder LT min 2V 12/29/2024 5:46 PM SIGNS AND SYMPTOMS: ^M62.838 Trapezius muscle spasm PROTOCOL: Frontal, Grashey, and scapular Y views of the left shoulder COMPARISON: None FINDINGS: Mild hypertrophic changes are noted in the acromioclavicular joint. There is mild narrowing of the glenohumeral joint. There is no fracture or dislocation. The visualized left hemithorax is grossly intact. XR/XR shoulder LT min 2V IMPRESSION: No fracture or dislocation. Mild degenerative changes are noted in the acromioclavicular joint. Impression dictated by: Vimal Cha M.D. 12/29/2024 10:11 PM Dictation Location: [place] [address] Electronically authenticated by: [id number] Y Date: 12/29/2024 22:11
== END 2024-12-29 17:16 | disposition home or self-care (01) ==
PROVIDERS: PCP Family Medicine; Visit Provider Family Medicine
DX: M62.838 Other muscle spasm (principal); M50.30 Other cervical disc degeneration, unspecified cervical region
CPT/HCPCS: 72040; 73030